=== PATIENT | male | born 1965 | race Caucasian/White ===

== ENCOUNTER 2021-05-11 22:38 | Emergency (ER) | payer OTHER, SELFPAY ==
[2021-05-11 22:39] VITALS: BP 115/85; PULSE 102; RESP 16; TEMP 36.6; O2SAT 94; BMI 27.5
[2021-05-11 22:45] VITALS: O2SAT 96
--- NOTE | 2021-05-11 22:55 | EX.ED.DYSGE1 ---
HPI History of Present Illness Chief Complaint: General Illness Informant: patient and spouse/S.O. Narrative Narrative: Patient presents with about 3 days of malaise, myalgias, mild nausea. He has had a rare cough but is not short of breath. No real diarrhea. He had an episode like this that lasted for 3 days about 2 weeks ago but then went away. He is still able to eat and drink but he has no taste or smell. He ate a sandwich before coming in here today. He is not vomiting. On review of systems I also find that he has had some very slight dysuria. No flank pain. Although he has nausea he is not having any abdominal pain. No chest pain. No rashes. Nothing really makes his symptoms better or worse. He did not get Covid vaccine. PFSH PFSH Home Medications ondansetron 4 mg PO Q8H PRN #10 tab 05/12/21 [Rx Last Taken Unknown] sulfamethoxazole-trimethoprim [Bactrim DS] 1 tab PO BID #14 tab 05/12/21 [Rx Last Taken Unknown] tamsulosin [Flomax] 0.4 mg PO DAILY #30 cap 05/12/21 [Rx Last Taken Unknown] Allergy/AdvReac Type Severity Reaction Status Date / Time No Known Allergies Allergy Verified 05/11/21 22:38 Surgical History Previous back surgery Social History Smoking Status: Former smoker ROS ROS ED Constitutional Constitutional ED: Reports chills, fever(s) and sweats Eyes Eyes: Denies change in vision ENT ENT ED: Denies ear pain, rhinorrhea or sore throat Cardiovascular Cardiovascular: Denies chest pain or palpitations Respiratory/Chest Respiratory/Chest: Reports cough; Denies dyspnea or sputum Gastrointestinal Gastrointestinal: Reports nausea; Denies abdominal pain, constipation, diarrhea, melena or vomiting Genitourinary Genitourinary ED: Reports dysuria and urinary frequency; Denies hematuria Musculoskeletal Musculoskeletal: Reports arthralgias and myalgias; Denies back pain Integumentary Denies rash Neurologic Neurologic: Denies paresthesias or weakness Psychiatric Psychiatric: Denies depression Endocrine Endocrinology: Denies polydipsia or polyuria Allergic/Immunologic Allergic/Immunologic ED: Denies urticaria EXAM Physical Exam Const Vital Signs: 05/11/21 22:39 Temperature 97.8 F Temperature Source Temporal Pulse Rate 102 H Respiratory Rate 16 Blood Pressure 115/85 H Blood Pressure Mean 95 Pulse Ox 94 Oxygen Delivery Method Room Air Positive well nourished and well developed General Appearance ED: well developed and NAD HEENT Reports moist mucous membranes trauma Eyes EOMs intact bilaterally Neck no lymphadenopathy Chest Wall inspection of chest normal Resp normal respiratory effort and clear to auscultation bilaterally Cardio regular rate, regular rhythm and no murmurs GI normal to inspection, nondistended, normoactive bowel sounds, non-tender and non-distended Palpation: soft Back/Spine no CVA tenderness Extremity General Extremety ED: Negative for edema or tenderness General Extremity: Negative for edema Neuro oriented x3 Sensorium / Orientation: alert Psych mental status grossly normal Skin no rashes or lesions noted MDM MDM MDM Narrative Medical decision making narrative: Patient's Covid is negative. His urine is strongly consistent with a UTI. The urine is cloudy, has nitrites, leukocyte esterase, greater than 100 white cells. I will start the patient on antibiotics. Although has had some nausea he is eating and drinking. I will write him for some Zofran if he needs it. Because of his age I will also start him on Flomax. He does not feel distended. He has had frequent urination but no indication of retention. He should return with worsening symptoms, vomiting and unable to keep meds down or other concerns. Lab Data Attestation: I reviewed the patient's lab results. Discharge Plan Triage Chief Complaint: General Illness ED Provider: Jude Combs Dx/Rx/DC Orders Clinical Impression: Acute UTI Instructions: ED Bladder Infection, Male (Adult) Prescriptions: New sulfamethoxazole-trimethoprim [Bactrim DS] 800-160 mg tablet 1 tab PO BID Qty: 14 RF: 0 tamsulosin [Flomax] 0.4 mg capsule 0.4 mg PO DAILY Qty: 30 RF: 0 ondansetron 4 mg tablet,disintegrating 4 mg PO Q8H PRN (Reason: nausea and vomiting) Qty: 10 RF: 0 Primary Care Provider: Nikolas Cui Referrals: Nikolas Cui MD [Primary Care Provider] - 3-5 Days if not improving Disposition Disposition: Home, Self Care
[2021-05-11] MEDS: Ondansetron ODT 4 MG Tablet PO (23:20)
[2021-05-12 00:03] LABS: Mucous, Urine 0 SEEN /hpf (<or=2+); Red Blood Cells-Urine 0 SEEN /hpf (0-5); Squamous Epithelial Cells - UA 0 SEEN /hpf (0-5)
[2021-05-12 00:08] LABS: Color, Urine Yellow (Yellow); Glucose, Dipstick Normal (Normal); Ketone-Dipstick Negative (Negative); Leukocyte Esterase-Dipstick 500 /ul (Negative); Nitrite-Dipstick Positive (Negative); Occult Blood-Urine 150 /ul (Negative); Protein-Dipstick 500 mg/dl (Negative); Specific Gravity, Urine 1.015 (1.002-1.030); Urine Bilirubin Dipstick Negative (Negative); Urine Clarity Cloudy (Clear); Urine Urobilinogen 1 mg/dl (Normal)
[2021-05-12 00:17] LABS: Bacteria 3+ /hpf (None Seen); White Blood Cells >100 SEEN /hpf (0-5)
[2021-05-12] MEDS: Smz/Tmp Ds Tablet 1 TABLET PO (00:45)
[2021-05-12 00:46] VITALS: BP 146/86; PULSE 85; RESP 18; O2SAT 95
== END 2021-05-12 00:51 | disposition home or self-care (01) ==
PROVIDERS: Emergency Provider Emergency Medicine; PCP Family Medicine
DX: N39.0 Urinary tract infection, site not specified (principal); Z87.891 Personal history of nicotine dependence
CPT/HCPCS: 81001; 87426; 99283